=== PATIENT | female | born 1950 | race Caucasian/White ===

== ENCOUNTER → 2016-12-21 | Outpatient (CLI) | payer OTHER ==
[~2016-12-21] MED LIST: ASPIRIN PO; FISH OIL 1,0001 CAP PO; MAGNESIUM27 MG; OYSTER CALCIUM500 MG PO; PREVACID15 MG PO; VITAMIN D400 UNI2; VYTORIN 10-20 M1 TAB PO; VYTORIN PO
--- NOTE | ~2016-12-21 | BD1 ---
[facility] A Service of [facility] RADIOLOGY TEXT RESULTS PATIENT: CHRISTINE JOSEPH LOCATION: [facility] : 54 UNIT #: [id number] AGE: [address]: Garrett Blank APRN SEX: F ORDER DR: [id number] [facility] [address] [place], [place] [address] [id number] O MR#: [id number] Acc #: [id number] NAME: CHRISTINE JOSEPH : 1950 SEX: F STUDY DATE/TIME: 12/21/2016 13:20 UNIT: [facility] ROOM: STUDY DESCRIPTION: BD Dexa Bone Dens 1+ Site Attending Physician: Garrett Blank Ordering Physician: Garrett Blank Primary Care Physician: Garrett Blank MEDICAL IMAGING REPORT This report is preliminary unless electronic signature is present EXAM DXA scan HISTORY Postmenopausal screening for osteoporosis. COMPARISON DXA scan 12/10/2014, 04/08/2011, 03/21/2009. FINDINGS Bone density was assessed utilizing a Hologic bone densitometer. Total bone density in the lumbar spine was calculated at 1.209 g/cm2 with a T-score of 1.5. Total bone density within the proximal left femur was calculated at 1.080 g/cm2 with a T-score of 1.1. When compared to the 2015 study there has been no statistically significant change in bone density. IMPRESSION Bone density within the lumbar spine and proximal left femur exceeds the mean. This is normal according to World Health Organization classification. No significant change from 2015 exam. Dictated by... Sandro Rodney M.D. THIS IS AN ELECTRONICALLY VERIFIED REPORT Sandro Rodney M.D. at 12/22/2016 12:28 PM JACQUELYN/césar TD: 12/21/2016 15:12 JOB #: [id number] [facility] A Service of [facility] RADIOLOGY TEXT RESULTS PATIENT: CHRISTINE JOSEPH LOCATION: [facility] : 54 UNIT #: [id number] AGE: [address]: Garrett Blank APRN SEX: F ORDER DR: MEDICAL IMAGING REPORT Page 1 of 1 COPY
== END | disposition home or self-care (01) ==
LOC: CWCC 13:06
DX: Z78.0 Asymptomatic menopausal state (principal)
CPT/HCPCS: 77080

== ENCOUNTER 2017-03-18 10:52 | Emergency (ER) | payer OTHER ==
--- NOTE | ~2017-03-18 | CR181 ---
[facility] A Service of [facility] RADIOLOGY TEXT RESULTS PATIENT: CHRISTINE JOSEPH LOCATION: [facility] : 54 UNIT #: [id number] AGE: [address]: Tamra Nicole APRN SEX: F ORDER DR: [id number] [facility] [address] [place], [place] [address] [id number] E MR#: [id number] Acc #: [id number] NAME: CHRISTINE JOSEPH. : 1950 SEX: F STUDY DATE/TIME: 03/18/2017 12:06 UNIT: [facility] ROOM: STUDY DESCRIPTION: CR Lumbar Spine 2 or 3 Views Attending Physician: Tamra Nicole A.P.R.N. Ordering Physician: [facility] MEDICAL IMAGING REPORT This report is preliminary unless electronic signature is present EXAM Lumbosacral spine HISTORY Low back pain after falling off porch this morning. FINDINGS 3 views are submitted. Spinal alignment is normal. Disc spaces and vertebral body heights maintained. There is moderate facet disease in the lower lumbar spine. No fractures are identified. CONCLUSION Facet disease. No acute findings. No fractures seen. Dictated by... Otto Carlos M.D. THIS IS AN ELECTRONICALLY VERIFIED REPORT Otto Carlos M.D. at 03/19/2017 9:32 AM SEVEN/karen TD: 03/18/2017 15:39 JOB #: [id number] MEDICAL IMAGING REPORT Page 1 of 1 COPY
--- NOTE | ~2017-03-18 | CT71 ---
[facility] A Service of [facility] RADIOLOGY TEXT RESULTS PATIENT: CHRISTINE JOSEPH LOCATION: [facility] : 54 UNIT #: [id number] AGE: [address]: Tamra Nicole APRN SEX: F ORDER DR: [id number] [facility] [address] [place], [place] [address] [id number] E MR#: [id number] Acc #: [id number] NAME: CHRISTINE JOSEPH. : 1950 SEX: F STUDY DATE/TIME: 03/18/2017 11:47 UNIT: [facility] ROOM: STUDY DESCRIPTION: CT Head Wo Contrast Attending Physician: Tamra Nicole A.P.R.N. Referring Physician: Julio César Justice M.D. Ordering Physician: Morales Potts M.D. Primary Care Physician: Garrett Blank MEDICAL IMAGING REPORT This report is preliminary unless electronic signature is present EXAM CT brain without contrast media. HISTORY Fell this morning, hit head. Pain left occipital region. TECHNIQUE Axial imaging of the brain was performed without contrast media. This CT exam was performed with one or more of the following radiation dose reduction techniques: automatic exposure control, adjustment of mA and/or kV according to patient size, and iterative reconstruction. FINDINGS Ventricular size and configuration is normal. No intra or extraaxial mass lesions, fluid collections or mass effect are seen. No focal areas of low attenuation or evidence of acute intracranial hemorrhage. Bony calvaria is unremarkable. The there is debris present in the external auditory canals bilaterally. CONCLUSION 1. Normal noncontrast CT of the brain. 2. Debris within the external auditory canals bilaterally. Dictated by... Otto Carlos M.D. THIS IS AN ELECTRONICALLY VERIFIED REPORT Otto Carlos M.D. at 03/19/2017 9:32 AM SEVEN/zuhair TD: 03/18/2017 15:36 JOB #: [id number] [facility] A Service [facility] RADIOLOGY TEXT RESULTS PATIENT: CHRISTINE JOSEPH [facility] #: [id number] : 54 UNIT #: [id number] AGE: [address]: Tamra Nicole APRN SEX: F ORDER DR: MEDICAL IMAGING REPORT Page 1 of 1 COPY
--- NOTE | ~2017-03-18 | CR150 ---
[facility] A Service of [facility] RADIOLOGY TEXT RESULTS PATIENT: CHRISTINE JOSEPH LOCATION: [place] : 54 UNIT #: [id number] AGE: [address]: Tamra Nicole APRN SEX: F ORDER DR: [id number] [facility] [address] [place], [place] [address] [id number] E MR#: [id number] Acc #: [id number] NAME: CHRISTINE JOSEPH. : 1950 SEX: F STUDY DATE/TIME: 03/18/2017 12:00 UNIT: [facility] ROOM: STUDY DESCRIPTION: CR Hip Min 2 Views Lt Attending Physician: Tamra Nicole A.P.R.N. Ordering Physician: Ed Randy Potts M.D. Primary Care Physician: Garrett Blank MEDICAL IMAGING REPORT This report is preliminary unless electronic signature is present EXAM AP pelvis and left hip. HISTORY Fell off porch today. Pain in the buttocks radiating to the left. FINDINGS An AP view of the pelvis and an oblique view of the left hip was obtained. Bony elements are intact and in normal alignment. No fractures are identified. CONCLUSION Negative. Dictated by... Otto Carlos M.D. THIS IS AN ELECTRONICALLY VERIFIED REPORT Otto Carlos M.D. at 03/19/2017 9:32 AM SEVEN/zuhair TD: 03/18/2017 15:45 JOB #: [id number] MEDICAL IMAGING REPORT Page 1 of 1 COPY
== END 2017-03-18 13:13 | disposition home or self-care (01) ==
LOC: CED 10:52 → CFTX 10:52
DX: S06.0X9A Concussion with loss of consciousness of unspecified duration, initial encounter (principal); S70.02XA Contusion of left hip, initial encounter; W01.0XXA Fall on same level from slipping, tripping and stumbling without subsequent striking against object, initial encounter; Y92.009 Unspecified place in unspecified non-institutional (private) residence as the place of occurrence of the external cause
CPT/HCPCS: 70450; 72100; 73502; 99284